=== PATIENT | female | born 1945 | race Caucasian/White ===

== ENCOUNTER 2024-05-12 09:30 | Inpatient (IN) | payer MEDICARE, OTHER ==
[~2024-05-12] VITALS: Ht 167.6 cm; Wt 121.1 kg
[2024-05-12] VITALS (36 sets, daily range): BP systolic 40–142; BP diastolic 27–104; PULSE 86–147; RESP 12–28; TEMP 36.7–36.9; O2SAT 96–100
[2024-05-12] MEDS: IPRATROPIUM/ALBUTEROL 0.5-3(2.5)MG/3ML NEB NEB SCH (01:50)
[~2024-05-12 09:30] MED LIST: ACET250T29 PO; AMLO10TA80 PO; FAMO20TA8 PO; FURO10VI3 IVP; INSU100I24 SQ; PRED10TA23 PO; SEMA0.258 SQ
[2024-05-12] MEDS: PIPERACILLIN/TAZO 3.375G/50ML 50 ML IV ONE (09:43)
[2024-05-12] MEDS: SODIUM CHLORIDE 0.9% (SEPSIS BOLUS) IV ONE (09:56)
[2024-05-12 10:00] LABS: HEMATOCRIT. 28.9 % (36.0-48.0); HEMOGLOBIN. 9.3 g/dL (12.0-16.0); MEAN CORPUSCULAR HEMOGLOBIN 27.8 pg (28.0-32.0); MEAN CORPUSCULAR HGB CONC 32.3 g/dL (31.0-37.0); MEAN PLATELET VOLUME 8.3 fl (7.4-10.4); PLATELET 271 x1000/uL (130-400); RED BLOOD CELL COUNT 3.36 mill/uL (4.2-5.4); RED CELL DISTRIBUTION WIDTH 19.8 % (11.6-14.6); WHITE BLOOD COUNT 20.4 x1000/uL (4.5-11.0)
[2024-05-12 10:02] LABS: DIFFERENTIAL COMMENT 1
[2024-05-12] MEDS: VANCOMYCIN 1G PREMIX 200 ML IV ONE (10:11)
[2024-05-12 10:22] LABS: INR 1.1; PROTHROMBIN TIME 12.1 sec (9.6-11.0)
[2024-05-12] MEDS: NOREPINEPHRINE 8MG/250ML PMX 250 ML IV STA (10:44)
[2024-05-12 10:54] LABS: BG BASE EXCESS -3.2 mmol/L (-2.0-3.0); BG CARBOXYHEMOGLOBIN 0.6 % (0.5-1.5); BG DEOXYHEMOGLOBIN 39.3 % (0.0-5.0); BG FRACTION INSPIRED OXYGEN 28; BG HCO3 ACT 22.7 mmol/L (21.0-28.0); BG METHEMOGLOBIN 0.3 % (0.5-1.5); BG OXYGEN SATURATION 60.3 % (94.0-98.0); BG OXYHEMOGLOBIN 59.8 % (94.0-98.0); BG PCO2 45.2 mmHg (32.0-45.0); BG PH 7.319 (7.350-7.450); BG PO2 36.1 mmHg (83.0-108.0); BG SAMPLE SITE RIGHT RADIAL; BG TOTAL HEMOGLOBIN 7.3 g/dL (12.0-16.0); BG VENT MODE NASAL CANNULA
[2024-05-12 11:14] LABS: CARBON DIOXIDE 25 mEq/L (21-32); CHLORIDE 100 mEq/L (98-107); POTASSIUM 4.4 mEq/L (3.5-5.1); SODIUM 133 mEq/L (136-145)
[2024-05-12 11:15] LABS: CALCIUM 7.2 mg/dL (8.7-10.4)
[2024-05-12 11:20] LABS: GLUCOSE 120 mg/dL (70-105); UREA NITROGEN BLOOD 41 mg/dL (9-23)
[2024-05-12 11:22] LABS: ALANINE AMINOTRANSFERASE 30 IU/L (10-49); ALBUMIN 2.3 g/dL (3.2-4.8); ASPARTATE AMINOTRANSFERASE 25 IU/L (<34); BILIRUBIN DIRECT 0.2 mg/dL (<=3.0); BILIRUBIN TOTAL 0.4 mg/dL (0.1-1.0); PROTEIN TOTAL 4.6 g/dL (6.0-8.3)
[2024-05-12 11:33] LABS: CREATININE 2.6 mg/dL (0.6-1.0)
[2024-05-12 11:34] LABS: TROPONIN I HIGH SENSITIVITY 138 ng/L (3.0-34)
[2024-05-12] MEDS: ETOMIDATE 2MG/ML 10ML VIAL IV ONE (11:50)
[2024-05-12] MEDS: PROPOFOL 10MG/ML 100ML 100 ML IV ONE ×2 (11:51→13:34)
[2024-05-12] MEDS: SUCCINYLCHOLINE CHLORIDE 200MG/10ML IV ONE (11:51)
[2024-05-12 12:29] LABS: CLARITY URINE CLOUDY (CLEAR); COLOR URINE DARK YELLOW (YELLOW); GLUCOSE URINE TRACE (NEGATIVE); KETONES URINE TRACE (NEGATIVE); LEUKOCYTE ESTERASE URINE 1+ (NEGATIVE); NITRITE URINE NEGATIVE (NEGATIVE); OCCULT BLOOD URINE 2+ (NEGATIVE); PROTEIN URINE 1+ (NEGATIVE); SPECIFIC GRAVITY URINE 1.022 (1.005-1.030)
[2024-05-12 12:31] LABS: BG BASE EXCESS -6.6 mmol/L (-2.0-3.0); BG DEOXYHEMOGLOBIN 0.4 % (0.0-5.0); BG FRACTION INSPIRED OXYGEN 50; BG HCO3 ACT 17.5 mmol/L (21.0-28.0); BG METHEMOGLOBIN 0.2 % (0.5-1.5); BG OXYGEN SATURATION 99.6 % (94.0-98.0); BG OXYHEMOGLOBIN 98.4 % (94.0-98.0); BG PCO2 30.9 mmHg (32.0-45.0); BG PH 7.372 (7.350-7.450); BG PO2 188.1 mmHg (83.0-108.0); BG SAMPLE SITE RIGHT BRACHIAL; BG TOTAL HEMOGLOBIN 11.7 g/dL (12.0-16.0); BG VENT MODE VENT - AC
[2024-05-12] MEDS: LIDOCAINE HCL 1% 10 MG/ML 10ML VIAL ONE (12:49)
[2024-05-12 12:52] LABS: ANISOCYTOSIS 1+; PLATELET ESTIMATE NORMAL
[2024-05-12] MEDS: NOREPINEPHRINE 8MG/250ML PMX 250 ML IV PRN (13:27)
[2024-05-12] MEDS ORDERED: ACETAMINOPHEN 325MG TABLET PO PRN (14:00)
[2024-05-12] MEDS ORDERED: ONDANSETRON HCL 4MG/2ML INJ IV PRN (14:00)
[2024-05-12 14:13] LABS: SQUAMOUS EPITHELIAL CELL URINE 3+ /lpf (RARE/1+)
[2024-05-12 14:14] LABS: MUCUS URINE TRACE /lpf (< = 2+)
[2024-05-12 14:16] LABS: BACTERIA URINE 1+
[2024-05-12] MEDS: METHYLPREDNISOLONE SOD SUCC 40MG/ML (ACT-O-VIAL) IV SCH (14:25)
[2024-05-12] MEDS: PIPERACILLIN/TAZO 3.375G/50ML 50 ML IV SCH (14:25)
[2024-05-12] MEDS: AZITHROMYCIN 500MG/250ML 250 ML IV SCH (14:25)
[2024-05-12] MEDS ORDERED: PHENYLEPHRINE 50MG/250ML PMX 250 ML IV PRN (14:30)
[2024-05-12] MEDS ORDERED: ETOMIDATE 2MG/ML 10ML VIAL IV ONE (14:47)
[2024-05-12] MEDS: SODIUM CHLORIDE 0.9% 100 ML IV ONE (14:52)
[2024-05-12] MEDS: PHENYLEPHRINE 50MG/250ML PMX 250 ML IV PRN (14:53)
[2024-05-12] MEDS: VANCOMYCIN 750MG/150ML (BAXTER) IV NR (15:23)
[2024-05-12 15:44] LABS: HEMATOCRIT. 31.2 % (36.0-48.0); HEMOGLOBIN. 8.1 g/dL (12.0-16.0); MEAN CORPUSCULAR HEMOGLOBIN 28.1 pg (28.0-32.0); MEAN CORPUSCULAR HGB CONC 26.1 g/dL (31.0-37.0); MEAN CORPUSCULAR VOLUME 107.9 fL (81.0-99.0); MEAN PLATELET VOLUME 9.1 fl (7.4-10.4); PLATELET 287 x1000/uL (130-400); RED BLOOD CELL COUNT 2.89 mill/uL (4.2-5.4); RED CELL DISTRIBUTION WIDTH 22.1 % (11.6-14.6)
[2024-05-12 15:45] LABS: DIFFERENTIAL COMMENT 1
[2024-05-12 15:59] LABS: WHITE BLOOD COUNT 35.9 x1000/uL (4.5-11.0)
[2024-05-12] MEDS: BLOOD SUGAR DIAGNOSTIC STRIP TEST SCH (16:30)
[2024-05-12 16:51] LABS: PLATELET ESTIMATE NORMAL
[2024-05-12] MEDS: INSULIN LISPRO 100 UNITS/ML SUBCUT SCH (17:41)
[2024-05-12] MEDS ORDERED: VASOPRESSIN 20 UNIT in SODIUM CHLORIDE 0.9% 99 ML IV PRN (18:15)
[2024-05-12] MEDS: NOREPINEPHRINE 32 MG in DEXT 5% WATER 218 ML IV PRN (18:54)
[2024-05-12 22:05] LABS: POTASSIUM 4.6 mEq/L (3.5-5.1)
[2024-05-12 22:11] LABS: CREATININE 2.5 mg/dL (0.6-1.0)
[2024-05-12] MEDS: PHENYLEPHRINE 100 MG in DEXT 5% WATER 240 ML IV PRN (22:23)
[2024-05-13] VITALS (103 sets, daily range): BP systolic 62–169; BP diastolic 40–115; PULSE 84–140; RESP 0–38; TEMP 36.8–37.1; O2SAT 96–100
[2024-05-13] MEDS: ENOXAPARIN 80MG/0.8ML SYR SUBCUT SCH (02:46)
[2024-05-13 06:13] LABS: POTASSIUM 4.5 mEq/L (3.5-5.1)
[2024-05-13 06:14] LABS: CALCIUM 6.9 mg/dL (8.7-10.4)
[2024-05-13 06:19] LABS: CREATININE 2.1 mg/dL (0.6-1.0)
[2024-05-13] MEDS: PROPOFOL 10MG/ML 100ML 100 ML IV PRN (07:01)
[2024-05-13 08:44] LABS: BG BASE EXCESS -7.9 mmol/L (-2.0-3.0); BG CARBOXYHEMOGLOBIN 0.1 % (0.5-1.5); BG DEOXYHEMOGLOBIN 1.2 % (0.0-5.0); BG FRACTION INSPIRED OXYGEN 40; BG HCO3 ACT 14.7 mmol/L (21.0-28.0); BG METHEMOGLOBIN 0.3 % (0.5-1.5); BG OXYGEN SATURATION 98.8 % (94.0-98.0); BG OXYHEMOGLOBIN 98.4 % (94.0-98.0); BG PH 7.424 (7.350-7.450); BG PO2 117.8 mmHg (83.0-108.0); BG SAMPLE SITE LEFT RADIAL; BG TOTAL HEMOGLOBIN 11.9 g/dL (12.0-16.0); BG VENT MODE VENT - AC
[2024-05-13] MEDS ORDERED: PANTOPRAZOLE SODIUM 40 MG/VIAL IV SCH (09:00)
[2024-05-13] MEDS: SODIUM BICARBONATE 100 MEQ in SODIUM CHLORIDE 0.45% 900 ML IV SCH (09:17)
[2024-05-13 11:24] LABS: HEMATOCRIT. 36.2 % (36.0-48.0); HEMOGLOBIN. 11.4 g/dL (12.0-16.0); MEAN CORPUSCULAR HGB CONC 31.4 g/dL (31.0-37.0); MEAN CORPUSCULAR VOLUME 89.2 fL (81.0-99.0); MEAN PLATELET VOLUME 8.2 fl (7.4-10.4); PLATELET 316 x1000/uL (130-400); RED BLOOD CELL COUNT 4.05 mill/uL (4.2-5.4); RED CELL DISTRIBUTION WIDTH 20.6 % (11.6-14.6); WHITE BLOOD COUNT 24.7 x1000/uL (4.5-11.0)
[2024-05-13 11:32] LABS: DIFFERENTIAL COMMENT 1
[2024-05-13] MEDS ORDERED: AMIODARONE HCL 900 MG in DEXT 5% WATER 482 ML IV SCH (13:15)
[2024-05-13] MEDS: AZITHROMYCIN 500MG/250ML 250 ML IV SCH (13:25)
[2024-05-13] MEDS: AMIODARONE 150MG/100ML D5W 100 ML IV NR (13:25)
[2024-05-13] MEDS: AMIODARONE 360MG/200ML D5W PREMIX IV ONE (14:16)
[2024-05-13] MEDS ORDERED: VANCOMYCIN 500MG PREMIX 100 ML IV SCH (14:30)
[2024-05-13 14:37] LABS: PLATELET ESTIMATE NORMAL
[2024-05-13 14:39] LABS: ANISOCYTOSIS 1+
[2024-05-13] MEDS: ENOXAPARIN 100MG/ML SYR SUBCUT SCH (17:31)
[2024-05-13] MEDS: DIGOXIN 500MCG/2ML AMP IV NR (18:35)
[2024-05-13] MEDS: AMIODARONE 360MG/200ML 200 ML IV SCH (20:19)
[2024-05-13] MEDS: PIPERACILLIN/TAZO 3.375G/50ML 50 ML IV SCH (21:01)
[2024-05-13] MEDS: INSULIN GLARGINE 100 UNITS/ML SUBCUT SCH (22:06)
[2024-05-14] VITALS (115 sets, daily range): BP systolic 65–140; BP diastolic 40–105; PULSE 87–123; RESP 10–24; TEMP 36.2–36.7; O2SAT 94–100
[2024-05-14] MEDS: METHYLPREDNISOLONE SOD SUCC 125MG/2ML (ACT-O-VIAL) IV SCH (06:25)
[2024-05-14] MEDS: PROPOFOL 10MG/ML 100ML 100 ML IV PRN (07:06)
[2024-05-14 07:39] LABS: HEMATOCRIT. 32.2 % (36.0-48.0); HEMOGLOBIN. 10.5 g/dL (12.0-16.0); MEAN CORPUSCULAR HEMOGLOBIN 28.3 pg (28.0-32.0); MEAN CORPUSCULAR HGB CONC 32.6 g/dL (31.0-37.0); MEAN CORPUSCULAR VOLUME 86.7 fL (81.0-99.0); MEAN PLATELET VOLUME 8.9 fl (7.4-10.4); PLATELET 287 x1000/uL (130-400); RED BLOOD CELL COUNT 3.71 mill/uL (4.2-5.4); RED CELL DISTRIBUTION WIDTH 20.4 % (11.6-14.6); WHITE BLOOD COUNT 19.6 x1000/uL (4.5-11.0)
[2024-05-14 07:53] LABS: DIFFERENTIAL COMMENT 1
[2024-05-14 07:56] LABS: POTASSIUM 4.4 mEq/L (3.5-5.1)
[2024-05-14 07:57] LABS: CALCIUM 9.7 mg/dL (8.7-10.4)
[2024-05-14 08:16] LABS: CREATININE 3.3 mg/dL (0.6-1.0)
[2024-05-14 08:40] LABS: BG BASE EXCESS 0.5 mmol/L (-2.0-3.0); BG CARBOXYHEMOGLOBIN 0.1 % (0.5-1.5); BG DEOXYHEMOGLOBIN 1.3 % (0.0-5.0); BG FRACTION INSPIRED OXYGEN 40; BG METHEMOGLOBIN 0.3 % (0.5-1.5); BG OXYGEN SATURATION 98.7 % (94.0-98.0); BG OXYHEMOGLOBIN 98.3 % (94.0-98.0); BG PH 7.503 (7.350-7.450); BG SAMPLE SITE RIGHT RADIAL; BG TOTAL HEMOGLOBIN 10.6 g/dL (12.0-16.0); BG VENT MODE VENT - AC
[2024-05-14 09:43] LABS: *AMPHETAMINES SCREEN URINE NEGATIVE (NEGATIVE); *BARBITURATES SCREEN URINE NEGATIVE (NEGATIVE); *BENZODIAZEPINES SCREEN URINE NEGATIVE (NEGATIVE); *COCAINE SCREEN URINE NEGATIVE (NEGATIVE); CANNABINOID URINE SCREEN NEGATIVE (NEGATIVE); ECSTASY MDMA SCREEN URINE NEGATIVE (NEGATIVE); METHADONE URINE SCREEN NEGATIVE (NEGATIVE); OPIATES URINE SCREEN NEGATIVE (NEGATIVE); PHENCYCLIDINE URINE SCREEN NEGATIVE (NEGATIVE)
[2024-05-14 11:44] LABS: ANISOCYTOSIS 2+; PLATELET ESTIMATE NORMAL; TEAR DROP CELLS 1+
[2024-05-14] MEDS: VANCOMYCIN 1.25GM/250ML IV NR (12:26)
[2024-05-14] MEDS ORDERED: INSULIN GLARGINE 100 UNITS/ML SUBCUT SCH (22:00)
[2024-05-15] VITALS (107 sets, daily range): BP systolic 59–161; BP diastolic 31–93; PULSE 78–131; RESP 0–30; TEMP 36.4–37.2; O2SAT 97–100
[2024-05-15 06:33] LABS: HEMATOCRIT. 25.9 % (36.0-48.0); HEMOGLOBIN. 8.3 g/dL (12.0-16.0); MEAN CORPUSCULAR HEMOGLOBIN 27.5 pg (28.0-32.0); MEAN CORPUSCULAR HGB CONC 32.1 g/dL (31.0-37.0); MEAN CORPUSCULAR VOLUME 85.5 fL (81.0-99.0); MEAN PLATELET VOLUME 8.9 fl (7.4-10.4); PLATELET 212 x1000/uL (130-400); RED BLOOD CELL COUNT 3.03 mill/uL (4.2-5.4); RED CELL DISTRIBUTION WIDTH 20.1 % (11.6-14.6); WHITE BLOOD COUNT 14.8 x1000/uL (4.5-11.0)
[2024-05-15 06:35] LABS: CHLORIDE 100 mEq/L (98-107); SODIUM 141 mEq/L (136-145)
[2024-05-15 06:36] LABS: CARBON DIOXIDE 29 mEq/L (21-32)
[2024-05-15 06:37] LABS: CALCIUM 6.5 mg/dL (8.7-10.4)
[2024-05-15 06:41] LABS: CREATININE 0.7 mg/dL (0.6-1.0); GLUCOSE 260 mg/dL (70-105); TRIGLYCERIDE 322 mg/dL (0-150)
[2024-05-15 06:42] LABS: UREA NITROGEN BLOOD 22 mg/dL (9-23)
[2024-05-15 06:55] LABS: POTASSIUM 2.4 mEq/L (3.5-5.1)
[2024-05-15 07:19] LABS: DIFFERENTIAL COMMENT 1
[2024-05-15] MEDS: AMIODARONE 200MG TABLET NG SCH (08:29)
[2024-05-15 09:03] LABS: BG BASE EXCESS 1.2 mmol/L (-2.0-3.0); BG CARBOXYHEMOGLOBIN 0.9 % (0.5-1.5); BG DEOXYHEMOGLOBIN 0.9 % (0.0-5.0); BG FRACTION INSPIRED OXYGEN 40; BG HCO3 ACT 23.5 mmol/L (21.0-28.0); BG METHEMOGLOBIN 0.3 % (0.5-1.5); BG OXYGEN SATURATION 99.1 % (94.0-98.0); BG OXYHEMOGLOBIN 97.9 % (94.0-98.0); BG PH 7.541 (7.350-7.450); BG PO2 149.4 mmHg (83.0-108.0); BG SAMPLE SITE RIGHT RADIAL; BG TOTAL HEMOGLOBIN 8.2 g/dL (12.0-16.0); BG VENT MODE VENT - AC
[2024-05-15 10:32] LABS: CARBON DIOXIDE 29 mEq/L (21-32); CHLORIDE 98 mEq/L (98-107); SODIUM 140 mEq/L (136-145)
[2024-05-15 10:33] LABS: CALCIUM 6.4 mg/dL (8.7-10.4)
[2024-05-15 10:37] LABS: CREATININE 0.7 mg/dL (0.6-1.0); GLUCOSE 238 mg/dL (70-105)
[2024-05-15 10:37] LABS: PLATELET ESTIMATE NORMAL
[2024-05-15 10:38] LABS: ANISOCYTOSIS 2+
[2024-05-15 10:38] LABS: UREA NITROGEN BLOOD 24 mg/dL (9-23)
[2024-05-15 10:40] LABS: BETA HYDROXYBUTYRATE 0.1 mMol/L (0.0-0.3)
[2024-05-15 10:44] LABS: POTASSIUM 2.3 mEq/L (3.5-5.1)
[2024-05-15] MEDS: MIDODRINE HCL 5MG TABLET NG SCH (11:21)
[2024-05-15] MEDS: POTASSIUM CHLORIDE 20MEQ/PACKET NG NR ×2 (11:36)
[2024-05-15] MEDS: MAGNESIUM 4 G PREMIX 100 ML IV NR (12:34)
[2024-05-15] MEDS: PIPERACILLIN/TAZO 3.375G/50ML IV SCH (15:16)
[2024-05-15] MEDS: PANTOPRAZOLE SODIUM 40 MG/VIAL IV SCH (15:17)
[2024-05-15] MEDS: POTASSIUM CHLORIDE 20MEQ/PACKET PO NR (17:15)
[2024-05-15] MEDS: VANCOMYCIN 1GM/200ML PMX (BAXTER) IV SCH (17:20)
[2024-05-15 18:49] LABS: INFLUENZA TYPE A Presumptive Negative (Pres. Neg.)
[2024-05-15 18:50] LABS: INFLUENZA TYPE B Presumptive Negative (Pres. Neg.)
[2024-05-15] MEDS: PROPOFOL 10MG/ML 100ML 100 ML IV PRN (18:52)
[2024-05-16] VITALS (111 sets, daily range): BP systolic 68–155; BP diastolic 44–113; PULSE 76–132; RESP 12–43; TEMP 36.114–37.1; O2SAT 88–100
[2024-05-16 05:27] LABS: CALCIUM 6.7 mg/dL (8.7-10.4); CARBON DIOXIDE 28 mEq/L (21-32); CHLORIDE 99 mEq/L (98-107); POTASSIUM 3.4 mEq/L (3.5-5.1); SODIUM 138 mEq/L (136-145)
[2024-05-16 05:32] LABS: CREATININE 0.8 mg/dL (0.6-1.0); GLUCOSE 397 mg/dL (70-105)
[2024-05-16 05:33] LABS: TRIGLYCERIDE 540 mg/dL (0-150); UREA NITROGEN BLOOD 30 mg/dL (9-23)
[2024-05-16 05:35] LABS: PHOSPHORUS 1.4 mg/dL (2.5-4.9)
[2024-05-16 07:37] LABS: HEMATOCRIT. 21.5 % (36.0-48.0); HEMOGLOBIN. 7.1 g/dL (12.0-16.0); MEAN CORPUSCULAR HEMOGLOBIN 28.3 pg (28.0-32.0); MEAN CORPUSCULAR HGB CONC 33.2 g/dL (31.0-37.0); MEAN CORPUSCULAR VOLUME 85.5 fL (81.0-99.0); MEAN PLATELET VOLUME 9.8 fl (7.4-10.4); PLATELET 193 x1000/uL (130-400); RED BLOOD CELL COUNT 2.52 mill/uL (4.2-5.4); RED CELL DISTRIBUTION WIDTH 21.1 % (11.6-14.6); WHITE BLOOD COUNT 19.5 x1000/uL (4.5-11.0)
[2024-05-16 07:41] LABS: DIFFERENTIAL COMMENT 1
[2024-05-16 09:10] LABS: BG BASE EXCESS 2.7 mmol/L (-2.0-3.0); BG CARBOXYHEMOGLOBIN 1.9 % (0.5-1.5); BG DEOXYHEMOGLOBIN 0.8 % (0.0-5.0); BG FRACTION INSPIRED OXYGEN 30; BG HCO3 ACT 25.5 mmol/L (21.0-28.0); BG METHEMOGLOBIN 0.4 % (0.5-1.5); BG OXYGEN SATURATION 99.2 % (94.0-98.0); BG OXYHEMOGLOBIN 96.9 % (94.0-98.0); BG PH 7.533 (7.350-7.450); BG PO2 143.8 mmHg (83.0-108.0); BG SAMPLE SITE LEFT RADIAL; BG TOTAL HEMOGLOBIN 6.3 g/dL (12.0-16.0); BG VENT MODE VENT - AC
[2024-05-16] MEDS: POTASSIUM PHOSPHATE 20 MMOL in DEXT 5% WATER 243.3333 ML IV ONE (10:25)
[2024-05-16 11:17] LABS: BG BASE EXCESS 0.6 mmol/L (-2.0-3.0); BG DEOXYHEMOGLOBIN 0.6 % (0.0-5.0); BG FRACTION INSPIRED OXYGEN 40; BG HCO3 ACT 23.8 mmol/L (21.0-28.0); BG METHEMOGLOBIN 0.1 % (0.5-1.5); BG OXYGEN SATURATION 99.4 % (94.0-98.0); BG OXYHEMOGLOBIN 98.3 % (94.0-98.0); BG PCO2 31.6 mmHg (32.0-45.0); BG PH 7.495 (7.350-7.450); BG PO2 164.9 mmHg (83.0-108.0); BG SAMPLE SITE LEFT RADIAL; BG TOTAL HEMOGLOBIN 6.7 g/dL (12.0-16.0); BG VENT MODE VENT - CPAP
[2024-05-16 11:24] LABS: ANISOCYTOSIS 3+; NUCLEATED RED BLOOD CELLS 3 /100 WBC; PLATELET ESTIMATE NORMAL
[2024-05-16] MEDS: MIDODRINE HCL 5MG TABLET NG SCH (14:17)
[2024-05-16 15:19] LABS: HEMATOCRIT 20.1 % (36.0-48.0); HEMOGLOBIN 6.2 g/dL (12.0-16.0)
[2024-05-16 15:43] LABS: IRON 143 ug/dL (50-170)
[2024-05-16 15:46] LABS: TOTAL IRON BINDING CAPACITY 185 ug/dl (250-425)
[2024-05-16 15:50] LABS: FERRITIN 1086 ng/mL (10-291); FOLIC ACID (FOLATE) SERUM 9.71 ng/mL (>5.38); VITAMIN B12 SERUM 186 pg/mL (211-911)
[2024-05-16] MEDS: PANTOPRAZOLE SODIUM 40 MG/VIAL IV SCH (16:21)
[2024-05-16 20:04] LABS: BG BASE EXCESS 3.4 mmol/L (-2.0-3.0); BG CARBOXYHEMOGLOBIN 0.2 % (0.5-1.5); BG DEOXYHEMOGLOBIN 1.4 % (0.0-5.0); BG FRACTION INSPIRED OXYGEN 35; BG HCO3 ACT 27.8 mmol/L (21.0-28.0); BG METHEMOGLOBIN 0.3 % (0.5-1.5); BG OXYGEN SATURATION 98.6 % (94.0-98.0); BG OXYHEMOGLOBIN 98.1 % (94.0-98.0); BG PCO2 41.6 mmHg (32.0-45.0); BG PH 7.443 (7.350-7.450); BG PO2 119.3 mmHg (83.0-108.0); BG SAMPLE SITE RIGHT RADIAL; BG TOTAL HEMOGLOBIN 9.7 g/dL (12.0-16.0); BG VENT MODE COOL AEROSOL
[2024-05-16] MEDS: SUCRALFATE 1G TABLET PO SCH (20:37)
[2024-05-16] MEDS ORDERED: METHYLPREDNISOLONE SOD SUCC 125MG/2ML (ACT-O-VIAL) IV SCH (21:00)
[2024-05-16 21:14] LABS: HEMATOCRIT 26.4 % (36.0-48.0); HEMOGLOBIN 8.5 g/dL (12.0-16.0)
[2024-05-16 21:25] LABS: PROTHROMBIN TIME 10.8 sec (9.6-11.0)
[2024-05-16 21:33] LABS: IRON 163 ug/dL (50-170)
[2024-05-16 21:36] LABS: TOTAL IRON BINDING CAPACITY 197 ug/dl (250-425)
[2024-05-16] MEDS: INSULIN GLARGINE 100 UNITS/ML SUBCUT SCH (21:59)
[2024-05-17] VITALS (87 sets, daily range): BP systolic 49–165; BP diastolic 22–87; PULSE 60–117; RESP 14–36; TEMP 35.8–36.9; O2SAT 92–100
[2024-05-17 00:07] LABS: HEMATOCRIT 27.8 % (36.0-48.0); HEMOGLOBIN 8.8 g/dL (12.0-16.0)
[2024-05-17 03:06] LABS: HEMOGLOBIN. 7.9 g/dL (12.0-16.0); MEAN CORPUSCULAR HEMOGLOBIN 27.8 pg (28.0-32.0); MEAN CORPUSCULAR HGB CONC 32.9 g/dL (31.0-37.0); MEAN CORPUSCULAR VOLUME 84.4 fL (81.0-99.0); MEAN PLATELET VOLUME 8.9 fl (7.4-10.4); PLATELET 139 x1000/uL (130-400); RED BLOOD CELL COUNT 2.84 mill/uL (4.2-5.4); RED CELL DISTRIBUTION WIDTH 18.2 % (11.6-14.6); WHITE BLOOD COUNT 23.5 x1000/uL (4.5-11.0)
[2024-05-17 03:11] LABS: CHLORIDE 105 mEq/L (98-107); POTASSIUM 3.3 mEq/L (3.5-5.1); PROTHROMBIN TIME 10.6 sec (9.6-11.0); SODIUM 142 mEq/L (136-145)
[2024-05-17 03:12] LABS: CARBON DIOXIDE 29 mEq/L (21-32)
[2024-05-17 03:17] LABS: CREATININE 0.7 mg/dL (0.6-1.0); DIFFERENTIAL COMMENT 1; GLUCOSE 307 mg/dL (70-105); UREA NITROGEN BLOOD 26 mg/dL (9-23)
[2024-05-17 03:19] LABS: ALANINE AMINOTRANSFERASE 23 IU/L (10-49); ALBUMIN 2.3 g/dL (3.2-4.8); ASPARTATE AMINOTRANSFERASE 19 IU/L (<34); BILIRUBIN TOTAL 0.7 mg/dL (0.1-1.0); PHOSPHORUS 2.2 mg/dL (2.5-4.9); PROTEIN TOTAL 4.1 g/dL (6.0-8.3)
[2024-05-17 06:20] LABS: HEMATOCRIT 25.8 % (36.0-48.0); HEMOGLOBIN 8.4 g/dL (12.0-16.0)
[2024-05-17] MEDS: MAGNESIUM 2 G PREMIX 50 ML IV NR (08:34)
[2024-05-17] MEDS: POTASSIUM PHOSPHATE 15 MMOL in DEXT 5% WATER 245 ML IV NR (08:34)
[2024-05-17 09:18] LABS: BG BASE EXCESS 1.7 mmol/L (-2.0-3.0); BG CARBOXYHEMOGLOBIN 0.9 % (0.5-1.5); BG DEOXYHEMOGLOBIN 1.5 % (0.0-5.0); BG FRACTION INSPIRED OXYGEN 30; BG HCO3 ACT 25.6 mmol/L (21.0-28.0); BG METHEMOGLOBIN 0.3 % (0.5-1.5); BG OXYGEN SATURATION 98.5 % (94.0-98.0); BG OXYHEMOGLOBIN 97.3 % (94.0-98.0); BG PCO2 37.1 mmHg (32.0-45.0); BG PH 7.456 (7.350-7.450); BG PO2 119.4 mmHg (83.0-108.0); BG SAMPLE SITE RIGHT RADIAL; BG TOTAL HEMOGLOBIN 8.7 g/dL (12.0-16.0); BG VENT MODE MASK - BIPAP
[2024-05-17 10:10] LABS: ANISOCYTOSIS 2+; PLATELET ESTIMATE NORMAL
[2024-05-17] MEDS: AMIODARONE 150MG/100ML D5W 100 ML IV SCH (11:13)
[2024-05-17] MEDS: AMIODARONE 360MG/200ML 200 ML IV SCH ×2 (11:56→17:26)
[2024-05-17 13:17] LABS: HEMOGLOBIN 8.3 g/dL (12.0-16.0)
[2024-05-17] MEDS: CYANOCOBALAMIN 1000MCG/ML VIAL IM NR (18:13)
[2024-05-17 20:31] LABS: HEMATOCRIT 26.3 % (36.0-48.0); HEMOGLOBIN 8.4 g/dL (12.0-16.0)
[2024-05-18] VITALS (98 sets, daily range): BP systolic 51–132; BP diastolic 16–116; PULSE 76–103; RESP 11–37; TEMP 36.2–36.9; O2SAT 86–100
[2024-05-18 05:50] LABS: HEMATOCRIT. 28.4 % (36.0-48.0); HEMOGLOBIN. 9.1 g/dL (12.0-16.0); MEAN CORPUSCULAR HEMOGLOBIN 27.8 pg (28.0-32.0); MEAN CORPUSCULAR HGB CONC 31.9 g/dL (31.0-37.0); MEAN CORPUSCULAR VOLUME 87.2 fL (81.0-99.0); MEAN PLATELET VOLUME 9.5 fl (7.4-10.4); PLATELET 157 x1000/uL (130-400); RED BLOOD CELL COUNT 3.26 mill/uL (4.2-5.4); WHITE BLOOD COUNT 33.7 x1000/uL (4.5-11.0)
[2024-05-18 05:56] LABS: DIFFERENTIAL COMMENT 1
[2024-05-18 06:29] LABS: CHLORIDE 101 mEq/L (98-107); POTASSIUM 3.1 mEq/L (3.5-5.1); SODIUM 142 mEq/L (136-145)
[2024-05-18 06:32] LABS: CALCIUM 7.7 mg/dL (8.7-10.4); CARBON DIOXIDE 30 mEq/L (21-32)
[2024-05-18 06:37] LABS: CREATININE 0.7 mg/dL (0.6-1.0); GLUCOSE 130 mg/dL (70-105); UREA NITROGEN BLOOD 26 mg/dL (9-23)
[2024-05-18 06:38] LABS: ALANINE AMINOTRANSFERASE 44 IU/L (10-49); ASPARTATE AMINOTRANSFERASE 38 IU/L (<34)
[2024-05-18 06:39] LABS: ALBUMIN 2.6 g/dL (3.2-4.8); BILIRUBIN DIRECT 0.3 mg/dL (<=3.0); BILIRUBIN TOTAL 0.6 mg/dL (0.1-1.0); PROTEIN TOTAL 4.7 g/dL (6.0-8.3)
[2024-05-18] MEDS: MIDODRINE HCL 5MG TABLET NG SCH (09:20)
[2024-05-18] MEDS: CYANOCOBALAMIN 1000MCG/ML VIAL IM SCH (09:21)
[2024-05-18] MEDS: VANCOMYCIN 1.25GM/250ML IV SCH (09:21)
[2024-05-18] MEDS: POTASSIUM CHLORIDE 20MEQ/PACKET PO NR (15:10)
[2024-05-18 15:40] LABS: PLATELET ESTIMATE NORMAL
[2024-05-18 15:41] LABS: ANISOCYTOSIS 1+
[2024-05-18] MEDS: BLOOD SUGAR DIAGNOSTIC STRIP TEST SCH (23:36)
[2024-05-18] MEDS: INSULIN LISPRO 100 UNITS/ML SUBCUT SCH (23:37)
[2024-05-19] VITALS (98 sets, daily range): BP systolic 70–148; BP diastolic 38–132; PULSE 79–99; RESP 11–37; TEMP 36.8–37; O2SAT 95–100
[2024-05-19 06:03] LABS: HEMATOCRIT. 27.5 % (36.0-48.0); HEMOGLOBIN. 8.8 g/dL (12.0-16.0); MEAN CORPUSCULAR HEMOGLOBIN 27.7 pg (28.0-32.0); MEAN CORPUSCULAR HGB CONC 32.1 g/dL (31.0-37.0); MEAN CORPUSCULAR VOLUME 86.4 fL (81.0-99.0); MEAN PLATELET VOLUME 9.6 fl (7.4-10.4); PLATELET 118 x1000/uL (130-400); RED BLOOD CELL COUNT 3.18 mill/uL (4.2-5.4); RED CELL DISTRIBUTION WIDTH 18.8 % (11.6-14.6); WHITE BLOOD COUNT 23.8 x1000/uL (4.5-11.0)
[2024-05-19 06:13] LABS: CARBON DIOXIDE 29 mEq/L (21-32); CHLORIDE 100 mEq/L (98-107); POTASSIUM 3.4 mEq/L (3.5-5.1); SODIUM 138 mEq/L (136-145)
[2024-05-19 06:14] LABS: CALCIUM 8.1 mg/dL (8.7-10.4)
[2024-05-19 06:19] LABS: CREATININE 0.7 mg/dL (0.6-1.0); GLUCOSE 78 mg/dL (70-105); UREA NITROGEN BLOOD 26 mg/dL (9-23)
[2024-05-19 06:22] LABS: PHOSPHORUS 2.9 mg/dL (2.5-4.9)
[2024-05-19 06:40] LABS: DIFFERENTIAL COMMENT 1
[2024-05-19] MEDS: KCL 20MEQ/100ML PREMIX 100 ML IV NR (08:45)
[2024-05-19] MEDS: MAGNESIUM 2 G PREMIX 50 ML IV NR (08:45)
[2024-05-19] MEDS: PHENYLEPHRINE 100 MG in DEXT 5% WATER 240 ML IV PRN (09:46)
[2024-05-19 15:46] LABS: PLATELET ESTIMATE NORMAL
[2024-05-19 15:47] LABS: MICROCYTOSIS 1+
[2024-05-19 16:42] LABS: BG BASE EXCESS 2.8 mmol/L (-2.0-3.0); BG CARBOXYHEMOGLOBIN 1.1 % (0.5-1.5); BG DEOXYHEMOGLOBIN 1.1 % (0.0-5.0); BG FRACTION INSPIRED OXYGEN 30; BG METHEMOGLOBIN 0.2 % (0.5-1.5); BG OXYGEN SATURATION 98.9 % (94.0-98.0); BG OXYHEMOGLOBIN 97.6 % (94.0-98.0); BG PCO2 34.4 mmHg (32.0-45.0); BG PH 7.497 (7.350-7.450); BG PO2 128.3 mmHg (83.0-108.0); BG SAMPLE SITE RH; BG VENT MODE MASK - BIPAP
[2024-05-19] MEDS: MEROPENEM 1G/100ML 100 ML IV SCH (23:04)
[2024-05-20] VITALS (107 sets, daily range): BP systolic 68–145; BP diastolic 26–120; PULSE 69–92; RESP 15–45; TEMP 36.8–37.6; O2SAT 93–100
[2024-05-20 06:01] LABS: MEAN CORPUSCULAR HEMOGLOBIN 27.7 pg (28.0-32.0); MEAN CORPUSCULAR HGB CONC 31.9 g/dL (31.0-37.0); MEAN CORPUSCULAR VOLUME 86.7 fL (81.0-99.0); MEAN PLATELET VOLUME 9.2 fl (7.4-10.4); PLATELET 105 x1000/uL (130-400); RED BLOOD CELL COUNT 2.88 mill/uL (4.2-5.4); RED CELL DISTRIBUTION WIDTH 19.4 % (11.6-14.6); WHITE BLOOD COUNT 19.5 x1000/uL (4.5-11.0)
[2024-05-20 06:11] LABS: CARBON DIOXIDE 30 mEq/L (21-32); CHLORIDE 101 mEq/L (98-107); POTASSIUM 3.9 mEq/L (3.5-5.1); SODIUM 136 mEq/L (136-145)
[2024-05-20 06:12] LABS: CALCIUM 7.9 mg/dL (8.7-10.4)
[2024-05-20 06:16] LABS: CREATININE 0.9 mg/dL (0.6-1.0); GLUCOSE 121 mg/dL (70-105)
[2024-05-20 06:17] LABS: UREA NITROGEN BLOOD 29 mg/dL (9-23)
[2024-05-20 06:18] LABS: PHOSPHORUS 3.4 mg/dL (2.5-4.9)
[2024-05-20 06:59] LABS: DIFFERENTIAL COMMENT 1
[2024-05-20] MEDS: FUROSEMIDE 40MG/4ML VIAL IVP NR (10:45)
[2024-05-20 10:53] LABS: BG BASE EXCESS 0.8 mmol/L (-2.0-3.0); BG CARBOXYHEMOGLOBIN 0.9 % (0.5-1.5); BG DEOXYHEMOGLOBIN 1.5 % (0.0-5.0); BG FRACTION INSPIRED OXYGEN 30; BG HCO3 ACT 25.1 mmol/L (21.0-28.0); BG METHEMOGLOBIN 0.3 % (0.5-1.5); BG OXYGEN SATURATION 98.5 % (94.0-98.0); BG OXYHEMOGLOBIN 97.3 % (94.0-98.0); BG PCO2 38.9 mmHg (32.0-45.0); BG PH 7.428 (7.350-7.450); BG PO2 114.8 mmHg (83.0-108.0); BG SAMPLE SITE RIGHT RADIAL; BG TOTAL HEMOGLOBIN 8.1 g/dL (12.0-16.0); BG VENT MODE MASK - BIPAP
[2024-05-20 12:50] LABS: PLATELET ESTIMATE SLIGHTLY DECREASED
[2024-05-20 12:51] LABS: ANISOCYTOSIS 1+
[2024-05-21] VITALS (111 sets, daily range): BP systolic 63–148; BP diastolic 32–133; PULSE 71–93; RESP 9–49; TEMP 36.3–36.7; O2SAT 94–100
[2024-05-21] MEDS: DEXTROSE 50% WATER 50ML SYRINGE IV PRN (00:15)
[2024-05-21 06:06] LABS: HEMATOCRIT. 23.7 % (36.0-48.0); HEMOGLOBIN. 7.7 g/dL (12.0-16.0); MEAN CORPUSCULAR HEMOGLOBIN 27.9 pg (28.0-32.0); MEAN CORPUSCULAR HGB CONC 32.5 g/dL (31.0-37.0); MEAN CORPUSCULAR VOLUME 85.9 fL (81.0-99.0); PLATELET 113 x1000/uL (130-400); RED BLOOD CELL COUNT 2.76 mill/uL (4.2-5.4); RED CELL DISTRIBUTION WIDTH 19.5 % (11.6-14.6); WHITE BLOOD COUNT 15.1 x1000/uL (4.5-11.0)
[2024-05-21 06:28] LABS: POTASSIUM 3.6 mEq/L (3.5-5.1)
[2024-05-21 06:30] LABS: CALCIUM 8.1 mg/dL (8.7-10.4)
[2024-05-21 06:35] LABS: CREATININE 1.1 mg/dL (0.6-1.0)
[2024-05-21 06:49] LABS: DIFFERENTIAL COMMENT 1
[2024-05-21] MEDS: POTASSIUM CHLORIDE 20MEQ/PACKET PO NR (08:49)
[2024-05-21] MEDS ORDERED: IPRATROPIUM/ALBUTEROL 0.5-3(2.5)MG/3ML NEB HHN PRN (09:45)
[2024-05-21] MEDS: METHYLPREDNISOLONE SOD SUCC 40MG/ML (ACT-O-VIAL) IV NR (12:21)
[2024-05-21] MEDS: FUROSEMIDE 40MG/4ML VIAL IVP NR (12:22)
[2024-05-21 12:35] LABS: BG BASE EXCESS -3.1 mmol/L (-2.0-3.0); BG CARBOXYHEMOGLOBIN 1.2 % (0.5-1.5); BG DEOXYHEMOGLOBIN 2.8 % (0.0-5.0); BG FRACTION INSPIRED OXYGEN 30; BG HCO3 ACT 22.7 mmol/L (21.0-28.0); BG METHEMOGLOBIN 0.3 % (0.5-1.5); BG OXYGEN SATURATION 97.2 % (94.0-98.0); BG OXYHEMOGLOBIN 95.7 % (94.0-98.0); BG SAMPLE SITE RIGHT RADIAL; BG TOTAL HEMOGLOBIN 8.9 g/dL (12.0-16.0); BG VENT MODE MASK - BIPAP
[2024-05-21] MEDS: IPRATROPIUM/ALBUTEROL 0.5-3(2.5)MG/3ML NEB HHN SCH (13:13)
[2024-05-21 14:21] LABS: ANISOCYTOSIS 2+; PLATELET ESTIMATE DECREASED
[2024-05-21] MEDS ORDERED: METHYLPREDNISOLONE SOD SUCC 40MG/ML (ACT-O-VIAL) IV SCH (14:45)
[2024-05-21] MEDS: METHYLPREDNISOLONE SOD SUCC 40MG/ML (ACT-O-VIAL) IV SCH (21:24)
[2024-05-22] VITALS (107 sets, daily range): BP systolic 64–120; BP diastolic 32–101; PULSE 69–87; RESP 12–43; TEMP 36.1–36.6; O2SAT 96–100
[2024-05-22 06:02] LABS: CHLORIDE 99 mEq/L (98-107); POTASSIUM 4.1 mEq/L (3.5-5.1); SODIUM 134 mEq/L (136-145)
[2024-05-22 06:03] LABS: CARBON DIOXIDE 28 mEq/L (21-32)
[2024-05-22 06:04] LABS: CALCIUM 8.5 mg/dL (8.7-10.4)
[2024-05-22 06:05] LABS: HEMOGLOBIN. 8.4 g/dL (12.0-16.0); MEAN CORPUSCULAR HEMOGLOBIN 28.1 pg (28.0-32.0); MEAN CORPUSCULAR HGB CONC 32.3 g/dL (31.0-37.0); MEAN CORPUSCULAR VOLUME 86.8 fL (81.0-99.0); PLATELET 143 x1000/uL (130-400); RED BLOOD CELL COUNT 2.99 mill/uL (4.2-5.4); RED CELL DISTRIBUTION WIDTH 19.7 % (11.6-14.6); WHITE BLOOD COUNT 14.2 x1000/uL (4.5-11.0)
[2024-05-22 06:08] LABS: CREATININE 1.3 mg/dL (0.6-1.0); GLUCOSE 166 mg/dL (70-105)
[2024-05-22 06:09] LABS: UREA NITROGEN BLOOD 34 mg/dL (9-23)
[2024-05-22 06:47] LABS: DIFFERENTIAL COMMENT 1
[2024-05-22 09:19] LABS: BG BASE EXCESS 0.3 mmol/L (-2.0-3.0); BG CARBOXYHEMOGLOBIN 0.2 % (0.5-1.5); BG FRACTION INSPIRED OXYGEN 30; BG HCO3 ACT 28.2 mmol/L (21.0-28.0); BG METHEMOGLOBIN 0.3 % (0.5-1.5); BG OXYHEMOGLOBIN 98.5 % (94.0-98.0); BG PCO2 65.4 mmHg (32.0-45.0); BG PH 7.253 (7.350-7.450); BG PO2 140.9 mmHg (83.0-108.0); BG SAMPLE SITE RIGHT RADIAL; BG TOTAL HEMOGLOBIN 9.2 g/dL (12.0-16.0); BG VENT MODE NASAL CANNULA
[2024-05-22] MEDS: FUROSEMIDE 40MG/4ML VIAL IVP SCH (10:37)
[2024-05-22 11:26] LABS: PLATELET ESTIMATE NORMAL
[2024-05-22] MEDS: BISACODYL 10MG SUPP PR NR ×2 (18:03→19:54)
[2024-05-22] MEDS: NA PHOS,M-B/NA PHOS,DI-BA ENEMA 118ML PR NR (21:16)
[2024-05-23] VITALS (106 sets, daily range): BP systolic 62–126; BP diastolic 41–102; PULSE 68–96; RESP 14–45; TEMP 36.1–36.3; O2SAT 97–100
[2024-05-23 04:51] LABS: BG CARBOXYHEMOGLOBIN 0.9 % (0.5-1.5); BG DEOXYHEMOGLOBIN 1.2 % (0.0-5.0); BG FRACTION INSPIRED OXYGEN 28; BG HCO3 ACT 26.2 mmol/L (21.0-28.0); BG METHEMOGLOBIN 0.2 % (0.5-1.5); BG OXYGEN SATURATION 98.8 % (94.0-98.0); BG OXYHEMOGLOBIN 97.7 % (94.0-98.0); BG PCO2 51.5 mmHg (32.0-45.0); BG PH 7.325 (7.350-7.450); BG PO2 130.9 mmHg (83.0-108.0); BG SAMPLE SITE RIGHT RADIAL; BG TOTAL HEMOGLOBIN 8.4 g/dL (12.0-16.0); BG VENT MODE NASAL CANNULA
[2024-05-23 05:19] LABS: CHLORIDE 100 mEq/L (98-107); HEMATOCRIT. 24.7 % (36.0-48.0); MEAN CORPUSCULAR HEMOGLOBIN 27.8 pg (28.0-32.0); MEAN CORPUSCULAR HGB CONC 32.4 g/dL (31.0-37.0); MEAN CORPUSCULAR VOLUME 85.9 fL (81.0-99.0); MEAN PLATELET VOLUME 8.6 fl (7.4-10.4); PLATELET 152 x1000/uL (130-400); POTASSIUM 3.4 mEq/L (3.5-5.1); RED BLOOD CELL COUNT 2.88 mill/uL (4.2-5.4); RED CELL DISTRIBUTION WIDTH 18.7 % (11.6-14.6); SODIUM 136 mEq/L (136-145)
[2024-05-23 05:20] LABS: CALCIUM 8.8 mg/dL (8.7-10.4); CARBON DIOXIDE 30 mEq/L (21-32)
[2024-05-23 05:25] LABS: CREATININE 1.4 mg/dL (0.6-1.0); GLUCOSE 95 mg/dL (70-105); UREA NITROGEN BLOOD 35 mg/dL (9-23)
[2024-05-23 05:27] LABS: ALANINE AMINOTRANSFERASE 23 IU/L (10-49); ALBUMIN 2.4 g/dL (3.2-4.8); ASPARTATE AMINOTRANSFERASE 22 IU/L (<34); BILIRUBIN DIRECT 0.2 mg/dL (<=3.0); BILIRUBIN TOTAL 0.3 mg/dL (0.1-1.0); PROTEIN TOTAL 4.7 g/dL (6.0-8.3)
[2024-05-23 06:49] LABS: DIFFERENTIAL COMMENT 1
[2024-05-23] MEDS: POTASSIUM CHLORIDE 20MEQ/PACKET PO NR (09:14)
[2024-05-23 11:22] LABS: ANISOCYTOSIS 2+; PLATELET ESTIMATE NORMAL
[2024-05-23] MEDS: METOCLOPRAMIDE HCL 10MG/2ML VIAL IV SCH (12:33)
[2024-05-24] VITALS (99 sets, daily range): BP systolic 81–138; BP diastolic 37–99; PULSE 73–114; RESP 13–40; TEMP 35.8–36.6; O2SAT 93–100
[2024-05-24 05:18] LABS: CHLORIDE 100 mEq/L (98-107); POTASSIUM 4.2 mEq/L (3.5-5.1); SODIUM 137 mEq/L (136-145)
[2024-05-24 05:19] LABS: CALCIUM 8.4 mg/dL (8.7-10.4); CARBON DIOXIDE 29 mEq/L (21-32); HEMATOCRIT. 23.1 % (36.0-48.0); HEMOGLOBIN. 7.4 g/dL (12.0-16.0); MEAN CORPUSCULAR HEMOGLOBIN 27.6 pg (28.0-32.0); MEAN CORPUSCULAR VOLUME 86.3 fL (81.0-99.0); MEAN PLATELET VOLUME 8.7 fl (7.4-10.4); PLATELET 154 x1000/uL (130-400); RED BLOOD CELL COUNT 2.67 mill/uL (4.2-5.4); WHITE BLOOD COUNT 15.7 x1000/uL (4.5-11.0)
[2024-05-24 05:24] LABS: CREATININE 1.7 mg/dL (0.6-1.0); GLUCOSE 144 mg/dL (70-105); UREA NITROGEN BLOOD 42 mg/dL (9-23)
[2024-05-24 05:26] LABS: PHOSPHORUS 4.3 mg/dL (2.5-4.9)
[2024-05-24 05:51] LABS: PROTHROMBIN TIME 10.6 sec (9.6-11.0)
[2024-05-24 06:46] LABS: DIFFERENTIAL COMMENT 1
[2024-05-24 11:13] LABS: ANISOCYTOSIS 2+; PLATELET ESTIMATE NORMAL
[2024-05-24 11:15] LABS: HYPOCHROMASIA 1+
[2024-05-24] MEDS ORDERED: PROPOFOL 200MG/20ML VIAL IV ONE (13:18)
[2024-05-25] VITALS (105 sets, daily range): BP systolic 73–134; BP diastolic 29–91; PULSE 79–124; RESP 14–49; TEMP 36.1–36.5; O2SAT 94–100
[2024-05-25 05:43] LABS: HEMATOCRIT. 22.1 % (36.0-48.0); HEMOGLOBIN. 7.1 g/dL (12.0-16.0); MEAN CORPUSCULAR HEMOGLOBIN 27.4 pg (28.0-32.0); MEAN CORPUSCULAR VOLUME 85.7 fL (81.0-99.0); MEAN PLATELET VOLUME 8.5 fl (7.4-10.4); PLATELET 129 x1000/uL (130-400); RED BLOOD CELL COUNT 2.58 mill/uL (4.2-5.4); WHITE BLOOD COUNT 11.4 x1000/uL (4.5-11.0)
[2024-05-25 05:48] LABS: CALCIUM 8.3 mg/dL (8.7-10.4)
[2024-05-25 05:49] LABS: POTASSIUM 3.5 mEq/L (3.5-5.1)
[2024-05-25 05:53] LABS: CREATININE 1.6 mg/dL (0.6-1.0)
[2024-05-25 06:15] LABS: DIFFERENTIAL COMMENT 1
[2024-05-25 08:52] LABS: BG BASE EXCESS -1.9 mmol/L (-2.0-3.0); BG CARBOXYHEMOGLOBIN 2.1 % (0.5-1.5); BG DEOXYHEMOGLOBIN 3.8 % (0.0-5.0); BG FRACTION INSPIRED OXYGEN 30; BG HCO3 ACT 23.1 mmol/L (21.0-28.0); BG METHEMOGLOBIN 0.4 % (0.5-1.5); BG OXYGEN SATURATION 96.1 % (94.0-98.0); BG OXYHEMOGLOBIN 93.7 % (94.0-98.0); BG PCO2 40.2 mmHg (32.0-45.0); BG PH 7.377 (7.350-7.450); BG PO2 84.6 mmHg (83.0-108.0); BG SAMPLE SITE RIGHT RADIAL; BG VENT MODE MASK - BIPAP
[2024-05-25] MEDS: MIDODRINE HCL 5MG TABLET NG SCH (09:27)
[2024-05-25 17:27] LABS: ANISOCYTOSIS 1+; NUCLEATED RED BLOOD CELLS 2 /100 WBC; PLATELET ESTIMATE DECREASED
[2024-05-26] VITALS (58 sets, daily range): BP systolic 86–122; BP diastolic 45–74; PULSE 82–118; RESP 7–40; TEMP 36.8–37.1; O2SAT 67–100
[2024-05-26 06:13] LABS: POTASSIUM 3.9 mEq/L (3.5-5.1)
[2024-05-26 06:15] LABS: CALCIUM 8.7 mg/dL (8.7-10.4)
[2024-05-26 06:18] LABS: CREATININE 1.7 mg/dL (0.6-1.0)
[2024-05-26 06:23] LABS: HEMOGLOBIN. 7.3 g/dL (12.0-16.0); MEAN CORPUSCULAR HEMOGLOBIN 27.4 pg (28.0-32.0); MEAN CORPUSCULAR HGB CONC 31.6 g/dL (31.0-37.0); MEAN CORPUSCULAR VOLUME 86.8 fL (81.0-99.0); MEAN PLATELET VOLUME 8.4 fl (7.4-10.4); PLATELET 149 x1000/uL (130-400); RED BLOOD CELL COUNT 2.66 mill/uL (4.2-5.4); RED CELL DISTRIBUTION WIDTH 19.1 % (11.6-14.6); WHITE BLOOD COUNT 12.7 x1000/uL (4.5-11.0)
[2024-05-26 06:38] LABS: DIFFERENTIAL COMMENT 1
[2024-05-26 10:52] LABS: PLATELET ESTIMATE NORMAL
[2024-05-26 10:53] LABS: ANISOCYTOSIS 1+
[2024-05-27] VITALS (70 sets, daily range): BP systolic 95–132; BP diastolic 51–110; PULSE 84–119; RESP 18–39; TEMP 36.5–37.2252; O2SAT 75–99
[2024-05-27 06:28] LABS: MEAN CORPUSCULAR HEMOGLOBIN 27.3 pg (28.0-32.0); MEAN CORPUSCULAR HGB CONC 31.6 g/dL (31.0-37.0); MEAN CORPUSCULAR VOLUME 86.3 fL (81.0-99.0); MEAN PLATELET VOLUME 8.5 fl (7.4-10.4); PLATELET 166 x1000/uL (130-400); RED BLOOD CELL COUNT 2.55 mill/uL (4.2-5.4); RED CELL DISTRIBUTION WIDTH 19.6 % (11.6-14.6)
[2024-05-27 06:41] LABS: DIFFERENTIAL COMMENT 1
[2024-05-27 06:50] LABS: CALCIUM 8.8 mg/dL (8.7-10.4)
[2024-05-27 06:54] LABS: CREATININE 1.7 mg/dL (0.6-1.0)
[2024-05-27 07:47] LABS: POTASSIUM 4.2 mEq/L (3.5-5.1)
[2024-05-27 09:58] LABS: NUCLEATED RED BLOOD CELLS 3 /100 WBC
[2024-05-27 09:59] LABS: ANISOCYTOSIS 2+; PLATELET ESTIMATE NORMAL
[2024-05-27] MEDS ORDERED: ACETAMINOPHEN 325MG TABLET NG PRN (14:05)
[2024-05-27] MEDS: SUCRALFATE 1G TABLET NG SCH (17:19)
[2024-05-27 20:54] LABS: BG BASE EXCESS -0.7 mmol/L (-2.0-3.0); BG CARBOXYHEMOGLOBIN 1.2 % (0.5-1.5); BG DEOXYHEMOGLOBIN 7.4 % (0.0-5.0); BG FRACTION INSPIRED OXYGEN 30; BG HCO3 ACT 24.6 mmol/L (21.0-28.0); BG METHEMOGLOBIN 0.2 % (0.5-1.5); BG OXYGEN SATURATION 92.5 % (94.0-98.0); BG OXYHEMOGLOBIN 91.2 % (94.0-98.0); BG PCO2 43.8 mmHg (32.0-45.0); BG PH 7.368 (7.350-7.450); BG PO2 65.6 mmHg (83.0-108.0); BG SAMPLE SITE LEFT RADIAL; BG VENT MODE MASK - BIPAP
[2024-05-27 22:09] LABS: HEMOGLOBIN 7.4 g/dL (12.0-16.0)
[2024-05-28] VITALS (60 sets, daily range): BP systolic 99–132; BP diastolic 51–107; PULSE 66–100; RESP 17–33; TEMP 36.6–37.3; O2SAT 95–100
[2024-05-28 00:59] LABS: HEMATOCRIT 27.9 % (36.0-48.0); HEMOGLOBIN 9.1 g/dL (12.0-16.0); MEAN CORPUSCULAR HEMOGLOBIN 28.9 pg (28.0-32.0); MEAN CORPUSCULAR HGB CONC 32.6 g/dL (31.0-37.0); MEAN CORPUSCULAR VOLUME 88.6 fL (81.0-99.0); PLATELET 155 x1000/uL (130-400); RED BLOOD CELL COUNT 3.14 mill/uL (4.2-5.4); RED CELL DISTRIBUTION WIDTH 18.6 % (11.6-14.6); WHITE BLOOD COUNT 16.2 x1000/uL (4.5-11.0)
[2024-05-28 05:56] LABS: POTASSIUM 5.2 mEq/L (3.5-5.1)
[2024-05-28 05:57] LABS: CALCIUM 8.8 mg/dL (8.7-10.4)
[2024-05-28 06:02] LABS: CREATININE 1.7 mg/dL (0.6-1.0)
[2024-05-28 06:04] LABS: HEMATOCRIT. 26.9 % (36.0-48.0); HEMOGLOBIN. 8.8 g/dL (12.0-16.0); MEAN CORPUSCULAR HEMOGLOBIN 29.2 pg (28.0-32.0); MEAN CORPUSCULAR HGB CONC 32.8 g/dL (31.0-37.0); MEAN CORPUSCULAR VOLUME 89.1 fL (81.0-99.0); MEAN PLATELET VOLUME 8.8 fl (7.4-10.4); PLATELET 160 x1000/uL (130-400); RED BLOOD CELL COUNT 3.02 mill/uL (4.2-5.4); RED CELL DISTRIBUTION WIDTH 18.9 % (11.6-14.6); WHITE BLOOD COUNT 14.8 x1000/uL (4.5-11.0)
[2024-05-28 06:09] LABS: DIFFERENTIAL COMMENT 1
[2024-05-28] MEDS: FUROSEMIDE 40MG/4ML VIAL IVP NR (06:21)
[2024-05-28] MEDS: SODIUM ZIRCONIUM CYCLOSILICATE 10GM/PACKET PO NR (06:21)
[2024-05-28] MEDS: CYANOCOBALAMIN 1000MCG TABLET NG SCH (06:21)
[2024-05-28 08:52] LABS: NUCLEATED RED BLOOD CELLS 1 /100 WBC; PLATELET ESTIMATE NORMAL
[2024-05-28 08:53] LABS: ANISOCYTOSIS 2+; HYPOCHROMASIA 1+
[2024-05-28 14:12] LABS: BG BASE EXCESS 2.7 mmol/L (-2.0-3.0); BG CARBOXYHEMOGLOBIN 0.2 % (0.5-1.5); BG DEOXYHEMOGLOBIN 3.1 % (0.0-5.0); BG FRACTION INSPIRED OXYGEN 36; BG HCO3 ACT 31.2 mmol/L (21.0-28.0); BG METHEMOGLOBIN 0.3 % (0.5-1.5); BG OXYGEN SATURATION 96.9 % (94.0-98.0); BG OXYHEMOGLOBIN 96.4 % (94.0-98.0); BG PCO2 72.2 mmHg (32.0-45.0); BG PH 7.254 (7.350-7.450); BG PO2 99.4 mmHg (83.0-108.0); BG SAMPLE SITE RIGHT RADIAL; BG TOTAL HEMOGLOBIN 10.5 g/dL (12.0-16.0); BG VENT MODE NASAL CANNULA
[2024-05-29] VITALS (61 sets, daily range): BP systolic 114–148; BP diastolic 56–117; PULSE 74–98; RESP 16–32; TEMP 36.1–37.1; O2SAT 96–100
[2024-05-29 06:38] LABS: CARBON DIOXIDE 29 mEq/L (21-32); CHLORIDE 104 mEq/L (98-107); POTASSIUM 5.2 mEq/L (3.5-5.1); SODIUM 140 mEq/L (136-145)
[2024-05-29 06:39] LABS: CALCIUM 8.9 mg/dL (8.7-10.4)
[2024-05-29 06:44] LABS: CREATININE 1.7 mg/dL (0.6-1.0); GLUCOSE 187 mg/dL (70-105); UREA NITROGEN BLOOD 58 mg/dL (9-23)
[2024-05-29 06:46] LABS: PHOSPHORUS 4.6 mg/dL (2.5-4.9); PREALBUMIN 18.7 mg/dl (10.0-40.0)
[2024-05-29] MEDS: FUROSEMIDE 40MG/4ML VIAL IVP SCH (08:33)
[2024-05-29 10:33] LABS: HEMATOCRIT. 30.6 % (36.0-48.0); HEMOGLOBIN. 9.8 g/dL (12.0-16.0); MEAN CORPUSCULAR HEMOGLOBIN 28.8 pg (28.0-32.0); MEAN CORPUSCULAR VOLUME 89.8 fL (81.0-99.0); MEAN PLATELET VOLUME 8.3 fl (7.4-10.4); PLATELET 143 x1000/uL (130-400); RED BLOOD CELL COUNT 3.41 mill/uL (4.2-5.4); RED CELL DISTRIBUTION WIDTH 19.2 % (11.6-14.6); WHITE BLOOD COUNT 15.1 x1000/uL (4.5-11.0)
[2024-05-29 10:39] LABS: DIFFERENTIAL COMMENT 1
[2024-05-29 14:33] LABS: ANISOCYTOSIS 2+; HYPOCHROMASIA 1+; PLATELET ESTIMATE NORMAL
[2024-05-30] VITALS (31 sets, daily range): BP systolic 122–167; BP diastolic 61–82; PULSE 90–125; RESP 16–36; TEMP 36.3–36.6; O2SAT 92–100
[2024-05-30 04:56] LABS: HEMATOCRIT. 29.5 % (36.0-48.0); HEMOGLOBIN. 9.4 g/dL (12.0-16.0); MEAN CORPUSCULAR HEMOGLOBIN 28.8 pg (28.0-32.0); MEAN CORPUSCULAR HGB CONC 31.7 g/dL (31.0-37.0); MEAN CORPUSCULAR VOLUME 91.1 fL (81.0-99.0); MEAN PLATELET VOLUME 8.4 fl (7.4-10.4); PLATELET 153 x1000/uL (130-400); RED BLOOD CELL COUNT 3.24 mill/uL (4.2-5.4); RED CELL DISTRIBUTION WIDTH 19.4 % (11.6-14.6); WHITE BLOOD COUNT 16.1 x1000/uL (4.5-11.0)
[2024-05-30 05:05] LABS: POTASSIUM 4.3 mEq/L (3.5-5.1)
[2024-05-30 05:06] LABS: CALCIUM 8.8 mg/dL (8.7-10.4)
[2024-05-30 05:11] LABS: CREATININE 1.8 mg/dL (0.6-1.0)
[2024-05-30 06:39] LABS: DIFFERENTIAL COMMENT 1
[2024-05-30] MEDS: FUROSEMIDE 40MG/4ML VIAL IVP SCH (08:23)
[2024-05-30 10:27] LABS: ANISOCYTOSIS 2+; PLATELET ESTIMATE NORMAL
[2024-05-31] VITALS (16 sets, daily range): BP systolic 122–158; BP diastolic 63–89; PULSE 66–122; RESP 22–37; TEMP 36.4–37.1; O2SAT 91–98
[2024-05-31 05:41] LABS: CALCIUM 8.9 mg/dL (8.7-10.4); POTASSIUM 3.5 mEq/L (3.5-5.1)
[2024-05-31 05:47] LABS: CREATININE 1.9 mg/dL (0.6-1.0)
[2024-05-31 06:00] LABS: HEMOGLOBIN. 8.6 g/dL (12.0-16.0); MEAN CORPUSCULAR HEMOGLOBIN 28.8 pg (28.0-32.0); MEAN CORPUSCULAR HGB CONC 31.9 g/dL (31.0-37.0); MEAN CORPUSCULAR VOLUME 90.2 fL (81.0-99.0); MEAN PLATELET VOLUME 8.3 fl (7.4-10.4); PLATELET 117 x1000/uL (130-400); RED BLOOD CELL COUNT 2.99 mill/uL (4.2-5.4); RED CELL DISTRIBUTION WIDTH 18.8 % (11.6-14.6); WHITE BLOOD COUNT 11.4 x1000/uL (4.5-11.0)
[2024-05-31 06:51] LABS: DIFFERENTIAL COMMENT 1
[2024-05-31 14:44] LABS: PLATELET ESTIMATE DECREASED
[2024-05-31 14:45] LABS: ANISOCYTOSIS 2+; HYPOCHROMASIA 1+
[2024-05-31] MEDS: POTASSIUM CHLORIDE 20MEQ TABLET SR PO NR (15:50)
[2024-05-31] MEDS: METHYLPREDNISOLONE SOD SUCC 125MG/2ML (ACT-O-VIAL) IV SCH (15:51)
[2024-05-31] MEDS ORDERED: IPRATROPIUM/ALBUTEROL 0.5-3(2.5)MG/3ML NEB HHN PRN (20:36)
[2024-05-31] MEDS ORDERED: IPRATROPIUM BROMIDE (0.02%) 0.5MG/2.5ML NEB HHN PRN (20:45)
[2024-05-31] MEDS: DILTIAZEM HCL 60MG TABLET PO SCH (22:37)
[2024-06-01] VITALS: BP 130/64; PULSE 95; RESP 25; TEMP 36.8; O2SAT 98
== END 2024-06-01 05:22 | DRG 870 ==
LOC: ER 09:30 → MICUNO 12:55 → EDBEDREQ 12:57 → EDBEDREQTM 12:57 → MICUSO 05-18 05:30 → 5EST 05-30 11:16
PROVIDERS: ADMIT Internal Medicine; ATTEND Internal Medicine
PROC: 5A1955Z Respiratory Ventilation, Greater than 96 Consecutive Hours (ICD-10-PCS; principal; 2024-05-12)
PROC: 0BH18EZ Insertion of Endotracheal Airway into Trachea, Via Natural or Artificial Opening Endoscopic (ICD-10-PCS; 2024-05-12)
PROC: 05HY33Z Insertion of Infusion Device into Upper Vein, Percutaneous Approach (ICD-10-PCS; 2024-05-12)
PROC: B54MZZA Ultrasonography of Right Upper Extremity Veins, Guidance (ICD-10-PCS; 2024-05-12)
PROC: 30233N1 Transfusion of Nonautologous Red Blood Cells into Peripheral Vein, Percutaneous Approach (ICD-10-PCS; 2024-05-16)
PROC: 5A09457 Assistance with Respiratory Ventilation, 24-96 Consecutive Hours, Continuous Positive Airway Pressure (ICD-10-PCS; 2024-05-16)
PROC: 5A09357 Assistance with Respiratory Ventilation, Less than 24 Consecutive Hours, Continuous Positive Airway Pressure (ICD-10-PCS; 2024-05-18)
PROC: 5A09357 Assistance with Respiratory Ventilation, Less than 24 Consecutive Hours, Continuous Positive Airway Pressure (ICD-10-PCS; 2024-05-19)
PROC: 5A09357 Assistance with Respiratory Ventilation, Less than 24 Consecutive Hours, Continuous Positive Airway Pressure (ICD-10-PCS; 2024-05-20)
PROC: 5A09357 Assistance with Respiratory Ventilation, Less than 24 Consecutive Hours, Continuous Positive Airway Pressure (ICD-10-PCS; 2024-05-21)
PROC: 5A09357 Assistance with Respiratory Ventilation, Less than 24 Consecutive Hours, Continuous Positive Airway Pressure (ICD-10-PCS; 2024-05-22)
PROC: 5A09357 Assistance with Respiratory Ventilation, Less than 24 Consecutive Hours, Continuous Positive Airway Pressure (ICD-10-PCS; 2024-05-23)
PROC: 5A09357 Assistance with Respiratory Ventilation, Less than 24 Consecutive Hours, Continuous Positive Airway Pressure (ICD-10-PCS; 2024-05-24)
PROC: 0DB68ZX Excision of Stomach, Via Natural or Artificial Opening Endoscopic, Diagnostic (ICD-10-PCS; 2024-05-24)
PROC: 0DB78ZX Excision of Stomach, Pylorus, Via Natural or Artificial Opening Endoscopic, Diagnostic (ICD-10-PCS; 2024-05-24)
PROC: 5A09357 Assistance with Respiratory Ventilation, Less than 24 Consecutive Hours, Continuous Positive Airway Pressure (ICD-10-PCS; 2024-05-25)
PROC: 5A09357 Assistance with Respiratory Ventilation, Less than 24 Consecutive Hours, Continuous Positive Airway Pressure (ICD-10-PCS; 2024-05-26)
PROC: 5A09357 Assistance with Respiratory Ventilation, Less than 24 Consecutive Hours, Continuous Positive Airway Pressure (ICD-10-PCS; 2024-05-27)
PROC: 5A09457 Assistance with Respiratory Ventilation, 24-96 Consecutive Hours, Continuous Positive Airway Pressure (ICD-10-PCS; 2024-05-28)
PROC: 5A09457 Assistance with Respiratory Ventilation, 24-96 Consecutive Hours, Continuous Positive Airway Pressure (ICD-10-PCS; 2024-05-30)
DX: A41.2 Sepsis due to unspecified staphylococcus (principal); E43 Unspecified severe protein-calorie malnutrition; J96.01 Acute respiratory failure with hypoxia; R65.21 Severe sepsis with septic shock; N17.0 Acute kidney failure with tubular necrosis; I21.A1 Myocardial infarction type 2; G92.8 Other toxic encephalopathy; J69.0 Pneumonitis due to inhalation of food and vomit; J96.22 Acute and chronic respiratory failure with hypercapnia; J96.21 Acute and chronic respiratory failure with hypoxia; K25.4 Chronic or unspecified gastric ulcer with hemorrhage; K22.11 Ulcer of esophagus with bleeding; J18.9 Pneumonia, unspecified organism; R57.0 Cardiogenic shock; J96.02 Acute respiratory failure with hypercapnia; J44.0 Chronic obstructive pulmonary disease with (acute) lower respiratory infection; N39.0 Urinary tract infection, site not specified; I13.0 Hypertensive heart and chronic kidney disease with heart failure and stage 1 through stage 4 chronic kidney disease, or unspecified chronic kidney disease; E87.1 Hypo-osmolality and hyponatremia; J44.1 Chronic obstructive pulmonary disease with (acute) exacerbation; Z68.41 Body mass index [BMI] 40.0-44.9, adult; I50.32 Chronic diastolic (congestive) heart failure; E66.2 Morbid (severe) obesity with alveolar hypoventilation; E87.29 Other acidosis; Z20.822 Contact with and (suspected) exposure to COVID-19; D64.9 Anemia, unspecified; B96.89 Other specified bacterial agents as the cause of diseases classified elsewhere; L89.159 Pressure ulcer of sacral region, unspecified stage; N18.1 Chronic kidney disease, stage 1; E11.22 Type 2 diabetes mellitus with diabetic chronic kidney disease; E87.6 Hypokalemia; E11.65 Type 2 diabetes mellitus with hyperglycemia; R13.12 Dysphagia, oropharyngeal phase; E53.8 Deficiency of other specified B group vitamins; I48.91 Unspecified atrial fibrillation; L89.150 Pressure ulcer of sacral region, unstageable; Z68.39 Body mass index [BMI] 39.0-39.9, adult; E83.39 Other disorders of phosphorus metabolism; E83.42 Hypomagnesemia; E78.00 Pure hypercholesterolemia, unspecified; I25.10 Atherosclerotic heart disease of native coronary artery without angina pectoris; I45.10 Unspecified right bundle-branch block; R32 Unspecified urinary incontinence; F41.9 Anxiety disorder, unspecified; Z87.01 Personal history of pneumonia (recurrent); Z74.01 Bed confinement status; E78.1 Pure hyperglyceridemia
CPT/HCPCS: 31500; 31720; 36415; 36573; 36600; 71045; 74018; 76700; 76770; 78580; 80048; 80053; 80076; 80202; 80305; 81003; 82010; 82270; 82330; 82375; 82607; 82728; 82746; 82805; 82962; 83036; 83540; 83550; 83605; 83735; 84100; 84132; 84134; 84145; 84478; 84484; 85014; 85018; 85025; 85027; 85044; 85379; 85384; 86850; 86900; 86920; 87070; 87077; 87186; 87426; 87449; 87804; 88304; 88305; 88312; 88313; 93005; 93970; 94003; 94070; 94640; 94660; 94664; 94760; 98960; 99291; A4606; A6261; C1725; J0282; J0330; J0456; J1160; J1650; J1815; J1940; J2003; J2185; J2371; J2470; J2543; J2704; J2765; J2919; J3370; J3420; J3475; J3480; J3490; J7030; J7060; P9016; A5200